=== PATIENT | male | born 1950 | race Caucasian/White ===

== ENCOUNTER 2021-09-17 10:56 | Emergency (ER) | payer OTHER, SELFPAY ==
[2021-09-17 10:57] VITALS: BP 132/74; PULSE 65; RESP 16; TEMP 36.3; O2SAT 99; BMI 27.1
--- NOTE | 2021-09-17 12:11 | RAD_ITS ---
STUDY: X-RAY - UNILATERAL RIBS ( LEFT ) WITH CHEST REASON FOR EXAM: Male, 71 years old. Mid back pain due to a fall. TECHNIQUE - RIBS: 4 view(s) of the ribs. TECHNIQUE - CHEST: Single PA view of the chest. COMPARISON: None. FINDINGS - RIBS: Normal visualized ribs without a demonstrated fracture. FINDINGS - CHEST: There is hyperinflation of the lungs consistent with chronic obstructive lung disease (COPD). Calcified right lower lobe granulomas. There is no demonstrated pleural abnormality. Normal size heart. Calcified right hilar lymph nodes. Normal visualized pulmonary arteries. There is atherosclerotic calcification of the aortic arch with tortuosity. Normal visualized thoracic spine. Normal visualized ribs, clavicles, and shoulders. There is no demonstrated abnormality of the visualized soft tissue structures of the upper abdomen. RAD/Ribs Uni Min 3V w/PA Chest IMPRESSION: RIBS: Normal x-ray examination of the ribs. CHEST: Hyperinflation. Electronically Signed: Lee Ridley MD at 12:52 EST ,
--- NOTE | 2021-09-17 12:18 | EX.ED.GENINJ ---
HPI History of Present Illness Chief Complaint: Fall Informant: patient Narrative Narrative: Patient had a mechanical slip and fall on ice about an hour ago. He hurt the ribs on the left. He is not short of breath but if he takes a real deep breath or twist the pain is better. Is better if he stays still. He does not have neck or spinal pain. He did not hit his head. No pain of arms or legs or difficulty walking. PFSH PFSH Allergy/AdvReac Type Severity Reaction Status Date / Time No Known Allergies Allergy Verified 09/17/21 11:03 Surgical History Previous back surgery Social History Smoking Status: Current every day smoker tobacco type: cigarettes ROS ROS ED Eyes Eyes: Denies blurry vision or change in vision ENT ENT ED: Denies rhinorrhea or sore throat Cardiovascular Cardiovascular: Reports chest pain; Denies palpitations Respiratory/Chest Respiratory/Chest: Denies cough or dyspnea Gastrointestinal Gastrointestinal: Denies abdominal pain, nausea or vomiting Musculoskeletal Musculoskeletal: Denies back pain or neck pain Integumentary Denies Abrasions or rash Neurologic Neurologic: Denies headache(s) or weakness Endocrine Endocrinology: Denies polydipsia or polyuria Hematologic/Lymphatic Hematologic/Lymphatic: Denies easy bleeding or easy bruising Allergic/Immunologic Allergic/Immunologic ED: Denies urticaria EXAM Physical Exam Const Vital Signs: 09/17/21 10:57 09/17/21 13:19 Temperature 97.4 F L Temperature Source Oral Pulse Rate 65 88 Respiratory Rate 16 14 Respiratory Effort Normal Respiratory Depth Normal Respiratory Pattern Normal Blood Pressure 132/74 H 124/67 H Blood Pressure Mean 93 86 Pulse Ox 99 97 Oxygen Delivery Method Room Air Room Air Positive well nourished and well developed General Appearance ED: well developed and NAD HEENT atraumatic; Negative for trauma or tenderness Eyes EOMs intact bilaterally Neck full ROM General: Negative for tenderness Chest Wall inspection of chest normal Chest Narrative: No contusions or abrasions at this time. He does have reproducible left rib tenderness mostly in the mid axillary line down very low. No crepitance is felt though. No subcutaneous air is noted. Resp normal respiratory effort and clear to auscultation bilaterally Auscultation: Negative for rales, rhonchi or wheezes Cardio regular rhythm Rate: regular rate Back/Spine normal to inspection Back/Spine Narrative: There is absolutely no tenderness to his cervical thoracic or lumbar spine. All the pain is lateral over the rib. Extremity normal to inspection and full ROM General Extremety ED: Negative for deformity or tenderness General Extremity: Negative for deformity Neuro oriented x3 Sensorium / Orientation: alert Psych mental status grossly normal Skin no rashes or lesions noted and no wounds MDM MDM MDM Narrative Medical decision making narrative: X-ray shows no definitive indication of rib fracture. There is mild hyperinflation. I discussed pain control options with the patient. He states all pain medicines give him side effects. He is happy taking aspirin only. We discussed ice. We discussed reasons to return. Radiography Diagnostic Testing: Clinical Impression(s) from Imaging Studies Ribs w/Chest X-Ray 09/17/21 12:11 IMPRESSION: RIBS: Normal x-ray examination of the ribs. CHEST: Hyperinflation. Electronically Signed: Lee Ridley MD at 12:52 EST , Discharge Plan Triage Chief Complaint: Fall ED Provider: Tyrone Aaron Dx/Rx/DC Orders Clinical Impression: Fall due to ice or snow, Contusion of left chest wall Instructions: ED Contusion, Rib [facility] [facility] - 1 Week if not improving Disposition Disposition: Home, Self Care
[2021-09-17 13:19] VITALS: BP 124/67; PULSE 88; RESP 14; O2SAT 97
[2021-09-17 15:00] VITALS: BP 134/86; PULSE 66; RESP 16; O2SAT 96
--- NOTE | 2021-09-20 14:10 | CASEMGMT ---
NIMCO TIM ED follow-up: Date of ER visit: 09/17/2021 Presenting ER visit: fall NIMCO TIM placed call to patient's telephone number listed on demographics and patient answered. NIMCO TIM introduced self and role at [facility]. Patient reports he has continued rib pain and tenderness but not taking OTC medication as he would rather deal with the pain than take medication, I just don't like taking medicine. Patient instructed to use ice to area but states ice makes me hurt. Patient encouraged to schedule follow-up appointment with PCP. [facility] unable to see clinic before that time. [facility]CO TIM offered to call [facility] to request [facility] appointment but patient declines. Patient denies mobility issues and states walking without difficulty. Patient denies questions, needs or concerns and expressed appreciation for follow-up call. NIMCO Collins CM
--- NOTE | 2021-09-20 14:10 | CASEMGMT ---
NIMCO TIM ED follow-up: Date of ER visit: 09/17/2021 Presenting ER visit: fall NIMCO TIM placed call to patient's telephone number listed on demographics and patient answered. NIMCO TIM introduced self and role at [facility]. Patient reports he has continued rib pain and tenderness but not taking OTC medication as he would rather deal with the pain than take medication, I just don't like taking medicine. Patient instructed to use ice to area but states ice makes me hurt. Patient encouraged to schedule follow-up appointment with PCP. Patient states [facility] but unable to see clinic before that time. NIMCO TIM offered to call [facility] to request [facility] appointment but patient declines. Patient denies mobility issues and states walking without difficulty. Patient instructed on deep breathing exercises. Voiced understanding. Patient denies questions, needs or concerns and expressed appreciation for follow-up call. NIMCO Collins CM
== END 2021-09-17 15:10 | disposition home or self-care (01) ==
PROVIDERS: Emergency Provider Emergency Medicine; Visit Provider Emergency Medicine
DX: S20.212A Contusion of left front wall of thorax, initial encounter (principal); W00.0XXA Fall on same level due to ice and snow, initial encounter; Y93.9 Activity, unspecified; Y92.9 Unspecified place or not applicable; F17.210 Nicotine dependence, cigarettes, uncomplicated
CPT/HCPCS: 71101; 99284

== ENCOUNTER 2022-06-14 13:22 | Outpatient (CLI) | payer MEDICARE, SELFPAY ==
--- NOTE | 2022-06-14 13:26 | CDU_ITS ---
Reason For Study: DIPLOPIA Rt. Velocities/BP Lt. Velocities/BP Prox CCA 82.5/19.2 cm/sec. Prox CCA 82.8/24.5 cm/sec. Mid CCA 70.2/19.2 cm/sec. Mid CCA 65.2/22.3 cm/sec. Dist CCA 59.8/17.3 cm/sec. Dist CCA 60.8/21.2 cm/sec. Prox ICA 66.4/18.2 cm/sec. Prox ICA 64.1/25.6 cm/sec. Mid ICA 71.1/18.2 cm/sec. Mid ICA 80.6/28.9 cm/sec. Dist ICA 51.3/18.2 cm/sec. Dist ICA 75.1/30.0 cm/sec. Rt. ICA/CCA = 1.0. Lt. ICA/CCA = 1.2. Prox ECA 77.8/13.5 cm/sec. Prox ECA 85.5/17.9 cm/sec. Rt. Vert. 31.6/8.8 cm/sec. Lt. Vert. 43.2/15.7 cm/sec. Right Extracranial There is homogeneous, smooth atherosclerotic plaque noted in the right common carotid artery. There is heterogeneous, irregular atherosclerotic plaque noted in the right internal carotid artery. There is intimal thickening but no significant atherosclerotic plaque noted in the right external carotid artery. Antegrade flow is noted in the right vertebral artery. Left Extracranial There is homogeneous, smooth atherosclerotic plaque noted in the left common carotid artery. There is heterogeneous, irregular atherosclerotic plaque noted in the left internal carotid artery. There is heterogeneous, irregular atherosclerotic plaque noted in the left external carotid artery. Antegrade flow is noted in the left vertebral artery. Procedure Carotid Duplex [id number]. This is a Carotid Duplex examination using B-mode, color flow and specral Doppler. The exam was diagnostic. Exam performed in department. VL/Carotid Duplex Ultrasound Interpretation Summary Mild (<50%) stenosis right extracranial internal carotid. Mild (<50%) stenosis left extracranial internal carotid. Patent and antegrade vertebrals bilaterally. Ordering Physician: Ventura Causey Referring Physician: Ventura Causey Performed By: Yannick Mckeon RVT
== END 2022-06-14 23:59 | disposition home or self-care (01) ==
LOC: CVS 13:23
PROVIDERS: Referring Provider Ophthalmology; Visit Provider Ophthalmology
DX: H53.2 Diplopia (principal)
CPT/HCPCS: 93880

== ENCOUNTER → 2022-09-26 | Outpatient (CLI) | payer MEDICARE, SELFPAY | END | disposition home or self-care (01) | PROVIDERS: Referring Provider Ophthalmology; Visit Provider Ophthalmology | DX: G70.00 Myasthenia gravis without (acute) exacerbation (principal) | CPT/HCPCS: 36415 ==

== ENCOUNTER → 2022-11-30 | Outpatient (CLI) | payer OTHER, MEDICARE, SELFPAY ==
--- NOTE | 2022-11-30 17:56 | CT_ITS ---
STUDY: LOW DOSE CT LUNG CANCER SCREENING REASON FOR EXAM: Male, 72 years old. Period patient smoked one half pack per day for 50 years. RADIATION DOSAGE (If Supplied By Facility): CTDIvol = ( 2.39 ) mGy, DLP = ( 88.46 ) mGycm TECHNIQUE: No contrast was administered. Low dose technique was utilized (average mAS-38 and kVp 120). 1.25 mm axial source images with a slice interval of 1.25-mm were reconstructed in lung windows. 2.5 mm axial source images with a slice interval of 2.5-mm were reconstructed in lung windows. 5.0 mm axial source images with a slice interval of 5.0-mm were reconstructed in soft tissue windows. COMPARISON: None. NODULES: There is an 8.7 mm calcified granuloma in the lateral aspect of the right lower lobe as well as a 7.4 mm calcified right normal and the posterior segment of the right lower Emphysema: Mild degree of scarring in the lung apices. Hyperinflation. Emphysematous changes with centrilobular emphysema in the upper lobes. Mild scarring in the anterior medial aspect of the right middle lobe as well as the lingular segment of the left upper lobe. Scarring in the lower lobes slightly more prominent on the right side. Endobronchial lesion: None Aorta: Calcified atherosclerotic plaques. CORONARY ARTERIES: Coronary artery calcification is seen. Heart: Unremarkable. Pulmonary artery: Unremarkable. Mediastinal nodes: Calcified right hilar lymph nodes. Other chest and abdominal findings: CT/Low Dose CT Lung Screening IMPRESSION: Lung-RADS category 2 - Continue annual screening with LDCT in 12 months. IMPORTANT NOTES FOR USE: ACR Lung-RADS Version 1.1 Assessment Categories Release Date: 2018 Category: Coded 0-4 bases on nodule(s) with highest degree of suspicion. Negative screen is defined as categories 1 and 2; a positive screen is defined as categories 3 and 4. Category 3 and 4A nodules that are unchanged on interval CT should be coded as category 2, and individuals returned to screening in 12 months. Category 4X: Category 3 or 4 nodules with additional imaging findings that increase the suspicion of lung cancer, such as spiculation, GGN that doubles in size in 1 year, enlarged lymph notes, etc. Category Modifiers: S (significant finding unrelated to lung cancer) Electronically Signed: Lee Ridley MD at 9:19 EDT ,
== END | disposition home or self-care (01) ==
LOC: CT 17:45
DX: F17.210 Nicotine dependence, cigarettes, uncomplicated (principal)
CPT/HCPCS: 71271

== ENCOUNTER → 2024-01-02 | Outpatient (CLI) | payer OTHER, SELFPAY ==
--- NOTE | 2024-01-02 14:38 | CT_ITS ---
STUDY: LOW DOSE CT LUNG CANCER SCREENING REASON FOR EXAM: Male, 73 years old. SCREENING. The patient smoked 2 packs per day for 60 years. RADIATION DOSAGE (If Supplied By Facility): CTDIvol = ( 3.02 ) mGy, DLP = ( 115.51 ) mGycm TECHNIQUE: No contrast was administered. Low dose technique was utilized (average mAS-38 and kVp 120). 1.25 mm axial source images with a slice interval of 1.25-mm were reconstructed in lung windows. 2.5 mm axial source images with a slice interval of 2.5-mm were reconstructed in lung windows. 5.0 mm axial source images with a slice interval of 5.0-mm were reconstructed in soft tissue windows. COMPARISON: Comparison is made with prior study of November 30, 2022. NODULES: Stable 8.7 mm calcified granuloma in the lateral aspect of the right lower lobe as well as a 7.4 mm calcified granuloma in the posterior segment of the right lower lobe. Emphysema: Mild degree of scarring at the lung apices. Hyperinflation. Emphysematous changes more prominent in the upper lobes. Scarring in the right lower lobe. Endobronchial lesion: None Aorta: Calcified atherosclerotic plaques. CORONARY ARTERIES: Coronary artery calcification is seen. Heart: Unremarkable Pulmonary artery: Unremarkable Mediastinal nodes: Calcified right hilar lymph nodes. Other chest and abdominal findings: CT/Low Dose CT Lung Screening IMPRESSION: Lung-RADS category 2 - Continue annual screening with LDCT in 12 months. IMPORTANT NOTES FOR USE: ACR Lung-RADS Version 1.1 Assessment Categories Release Date: 2018 Category: Coded 0-4 bases on nodule(s) with highest degree of suspicion. Negative screen is defined as categories 1 and 2; a positive screen is defined as categories 3 and 4. Category 3 and 4A nodules that are unchanged on interval CT should be coded as category 2, and individuals returned to screening in 12 months. Category 4X: Category 3 or 4 nodules with additional imaging findings that increase the suspicion of lung cancer, such as spiculation, GGN that doubles in size in 1 year, enlarged lymph notes, etc. Category Modifiers: S (significant finding unrelated to lung cancer) Electronically Signed: Lee Ridley MD at 15:29 EDT ,
== END | disposition home or self-care (01) ==
LOC: CT 14:35
DX: F17.210 Nicotine dependence, cigarettes, uncomplicated (principal)
CPT/HCPCS: 71271

== ENCOUNTER → 2025-01-03 | Outpatient (CLI) | payer OTHER, SELFPAY ==
--- NOTE | 2025-01-03 15:57 | CT_ITS ---
PROCEDURE: LOW DOSE CT LUNG SCREENING 01/03/2025 REASON FOR EXAM: NICOTINE DEPENDENCE, CIGARETTES, UNCOMPLICATED TECHNIQUE: LOW DOSE CT LUNG SCREENING Coronal and Sagittal reconstruction series were provided. One or more dose reduction techniques were used (e.g., Automated exposure control, adjustment of the mA and/or kV according to patient size, use of iterative reconstruction technique). REFERENCE LINK: [facility] Lung-RADS RADIATION DOSE SUMMARY: CTDlvol: 3.02 mGy DLP: 110.61 mGycm COMPARISON: 01/02/2024. FINDINGS: PULMONARY NODULES: (Only nodules >3mm are reported) Nodules described below are on series 2 unless otherwise specified. Unchanged emphysema. Unchanged scarring in the lung apices. Unchanged scarring in the right lower lobe. Unchanged 8.7 mm calcified granuloma in the lateral aspect of the right lower lobe. Unchanged 7.4 mm calcified granuloma in the posterior segment of the right lower lobe. Unchanged coronal artery calcifications. Diffuse spondylosis. Normal unenhanced main pulmonary artery and right and left pulmonary arteries. Normal bilateral peripheral pulmonary arteries. Normal thoracic aorta and visualized great vessels. There is no demonstrated aortic aneurysm. Normal heart and pericardium. Normal mediastinum. Normal hilar regions. Normal visualized trachea and bronchi. Normal pleura. Normal visualized upper abdomen. CT/Low Dose CT Lung Screening IMPRESSION: Coronary artery calcification (CAC) is is present Lung-RADS Category: 2 BENIGN (BASED ON IMAGING FEATURES OR INDOLENT BEHAVIOR). RECOMMEND 12-MONTH SCREENING LDCT. Unchanged emphysema. Unchanged scarring in the lung apices. Unchanged scarring in the right lower lobe. Unchanged 8.7 mm calcified granuloma in the lateral aspect of the right lower l obe. Unchanged 7.4 mm calcified granuloma in the posterior segment of the right lowe r lobe. Unchanged coronal artery calcifications. Diffuse spondylosis. Reading Location[facility]
== END | disposition home or self-care (01) ==
LOC: CT 15:56
PROVIDERS: Referring Provider Nurse Practitioner Adult Health; Visit Provider Nurse Practitioner Adult Health
DX: F17.210 Nicotine dependence, cigarettes, uncomplicated (principal)
CPT/HCPCS: 71271